=== PATIENT | female | born 1990 | race American Indian/Alaskan Native ===

== ENCOUNTER 2023-03-17 14:49 | Inpatient (IN) | payer BC, OTHER ==
[~2023-03-17 14:49] MED LIST: ORTHO TRI-CYCL1 EACH PO
[2023-03-17 15:55] LABS: HEMATOCRIT 33.5 % (35.0-50.0); MCHC 35.7 g/dl (30-36); MCV 86.9 fl (81-99); RBC 3.86 M/ul (4.3-5.7)
[2023-03-17 15:55] LABS: AMPHETAMINES, URINE NEGATIVE (NEGATIVE); BARBITURATES, URINE NEGATIVE (NEGATIVE); BENZODIAZEPINE, URINE NEGATIVE (NEGATIVE); BUPRENORPHINE, URINE NEGATIVE (NEGATIVE); CANNABINOID, URINE NEGATIVE (NEGATIVE); COCAINE, URINE NEGATIVE (NEGATIVE); ECSTASY, URINE NEGATIVE (NEGATIVE); FENTANYL, URINE NEGATIVE (NEGATIVE); METHADONE, URINE NEGATIVE (NEGATIVE); OPIATES, URINE NEGATIVE (NEGATIVE); OXYCODONE, URINE NEGATIVE (NEGATIVE); PHENCYCLIDINE, URINE NEGATIVE (NEGATIVE)
[2023-03-17 16:00] VITALS: BP 114/64
[2023-03-17 16:38] LABS: ABO AB; RH POSITIVE
[2023-03-17 16:39] LABS: ANTIBODY SCREEN NEGATIVE
--- NOTE | 2023-03-17 17:20 | PR ---
[facility] [address] [place], [place] [address] Signed Progress Notes IP Datetime Report Generated by CPN: 03/17/2023 17:20 PROGRESS NOTES: [id number] Impression: Normal Progression of Labor Procedures: Scalp Electrode; Sterile Speculum Exam Plan: Continue Present Management VITAL SIGNS: [id number] Vital Signs: Reviewed; Within Normal Limits EXAM: [id number] Dilatation: 5.0 Effacement: 75 Station: -2 Contractions: Irregular MEMBRANES: [id number] Comments: Pt w/ noted deceleration after AROM. Improved w/ maternal IV fluid bolus and repositioning. FSE placed w/out difficulty. Will monitor closely FETUS A: [id number] FHR Baseline: 135 Variability: Moderate 6-25bpm Accelerations: 15X15 Decelerations: Prolonged FHR Category: Category II Presentation: Vertex Comments on Fetus A: No evidence of metabolic acidosis FETUS B: [id number] Signing Physician: Risa Navarro DO Copies: ~ *Electronically Signed* 03/17/23 0324 RISA NAVARRO (MIREYA) DO PATIENT NAME: LINDA PACK PROGRESS NOTE DATE OF : 88 PHYSICIAN: RISA NAVARRO) DO RPT #: [id number] REPORT IS CONFIDENTIAL AND NOT TO BE RELEASED WITHOUT AUTHORIZATION
--- NOTE | 2023-03-17 18:08 | PR ---
[facility] [address] [place], [place] [address] Signed Progress Notes IP Datetime Report Generated by CPN: 03/17/2023 18:08 PROGRESS NOTES: [id number] Impression: Normal Progression of Labor; Reassuring Heart Rate Procedures: Sterile Vag Exam Plan: Continue Present Management Informed Consent Obtain: Vaginal Delivery VITAL SIGNS: [id number] Vital Signs: Reviewed; Within Normal Limits EXAM: [id number] Dilatation: 4.5 Effacement: 75 Station: -2 Contractions: q 4 min MEMBRANES: [id number] Comments: Pt seen and examined. Doing well. Feeling more uncomfortable and pelvic pressure. 4.5cm on exam. Minimal variability noted and acceleration noted w/ scalp stimulation. Continue expectant management. FETUS A: [id number] FHR Baseline: 135 Variability: Minimal - >Undetectable to <=5bpm Accelerations: 15X15 Decelerations: None FHR Category: Category II Presentation: Vertex Comments on Fetus A: No evidence of metabolic acidosis FETUS B: [id number] Signing Physician: Risa Navarro DO Copies: ~ *Electronically Signed* 03/17/23 9600 RISA NAVARRO (MIREYA) DO PATIENT NAME: LINDA PACK PROGRESS NOTE DATE OF : 88 PHYSICIAN: RISA NAVARRO (JD) DO RPT #: [id number] REPORT IS CONFIDENTIAL AND NOT TO BE RELEASED WITHOUT AUTHORIZATION
--- NOTE | 2023-03-18 00:10 | PR ---
[facility] [address] [place], [place] [address] Signed Progress Notes IP Datetime Report Generated by CPN: 03/18/2023 00:10 PROGRESS NOTES: [id number] Impression: Normal Progression of Labor; Reassuring Heart Rate Procedures: Intrauterine Pressure Catheter; Sterile Vag Exam Plan: Continue Present Management; Augmentation Informed Consent Obtain: Vaginal Delivery VITAL SIGNS: [id number] Vital Signs: Reviewed; Within Normal Limits EXAM: [id number] Dilatation: 7.0 Effacement: 90 Station: -1 Contractions: q 1-3 min MEMBRANES: [id number] Comments: Pt seen and examined. Doing well. Comfortable w/ contractions w/ epidural. IUPC not working well and RN requested replacement. Frequent maternal position changes. heart tracing reassuring. Will continue to monitor and augment per protocol FETUS A: [id number] FHR Baseline: 135 Variability: Moderate 6-25bpm Accelerations: 15X15 Decelerations: None FHR Category: Category II Presentation: Vertex Comments on Fetus A: No evidence of metabolic acidosis FETUS B: [id number] Signing Physician: Risa Navarro DO Copies: ~ *Electronically Signed* 03/18/23 0010 RISA NAVARRO (MIREYA) DO PATIENT NAME: LINDA PACK PROGRESS NOTE DATE OF : 88 PHYSICIAN: RISA NAVARRO (JD) DO RPT #: [id number] REPORT IS CONFIDENTIAL AND NOT TO BE RELEASED WITHOUT AUTHORIZATION
[2023-03-19 05:42] LABS: HEMATOCRIT 32.1 % (35.0-50.0); HEMOGLOBIN 10.9 g/dL (12.0-18.0); MCH 30.7 (27-36); MCHC 34.1 g/dl (30-36); MCV 90.2 fl (81-99); RBC 3.56 M/ul (4.3-5.7); RDW 13.2 (10.5-15.0)
--- NOTE | 2023-03-19 09:33 | PR ---
[facility] [address] [facility] [place], [place] [address] Signed PP Progress Notes Datetime Report Generated by CPN: 03/19/2023 09:33 SUBJECTIVE: [id number] Pain: Within Normal Limits Nausea/Vomiting: Denies Flatus: Yes Bowel Movement: No Vital Signs: [id number] Vital Signs: Reviewed; Within Normal Limits Notable Details: Hgb 10.9 EXAM: Met Cardiovascular: Normal Respiratory: Normal Abdomen/Uterus: Normal Lochia: Normal Vulva/Perineum: Normal Breasts: Not Done CVA Tenderness: Normal Extremities: Normal Incision: Not Applicable Progress: Normal Exam Comments: Fundus firm U-2 nontender IMPRESSION/PLAN/PROCEDURES: [id number] Impression: Normal Progression Plan: Discharge Progress Notes: Pt seen and examined. Doing well. Ambulating, voiding, and tolerating full diet. well. No fevers/chills or other concerns. Strongly desires d/c home. Unsure on pp contraception. No questions or concerns. F/U 6 wk pp at [facility] Signing Physician: Risa Navarro DO Copies: ~ *Electronically Signed* 03/19/23 0933 RISA NAVARRO (MIREYA) DO PATIENT NAME: LINDA PACK PROGRESS NOTE DATE OF : 88 PHYSICIAN: RISA NAVARRO) DO RPT #: [id number] REPORT IS CONFIDENTIAL AND NOT TO BE RELEASED WITHOUT AUTHORIZATION
--- NOTE | 2023-03-19 11:11 | NUR ---
[facility] ROUNDS. 15 MINUTES. PT NURSING BABY IN CHAIR. BOTH EXPRESSED OPTIMISM AND HOPE. PROVIDED SUPPORTIVE PRESENCE; LISTENEND EMPATHETICALLY; PROVIDED PRAYER. PT AND GENERAL DENTIST EXPRESSED GRATITUDE.
== END 2023-03-19 13:05 | disposition home or self-care (01) | DRG 807 ==
LOC: FBCO 14:49 → FBC 15:10
PROVIDERS: ADMIT Obstetrics & Gynecology; ATTEND Obstetrics & Gynecology
PROC: 10E0XZZ Delivery of Products of Conception, External Approach (ICD-10-PCS; principal; 2023-03-18)
PROC: 3E0R3BZ Introduction of Anesthetic Agent into Spinal Canal, Percutaneous Approach (ICD-10-PCS; 2023-03-18)
PROC: 00HU33Z Insertion of Infusion Device into Spinal Canal, Percutaneous Approach (ICD-10-PCS; 2023-03-18)
PROC: 10907ZC Drainage of Amniotic Fluid, Therapeutic from Products of Conception, Via Natural or Artificial Opening (ICD-10-PCS; 2023-03-18)
PROC: 10H07YZ Insertion of Other Device into Products of Conception, Via Natural or Artificial Opening (ICD-10-PCS; 2023-03-18)
PROC: 0UQMXZZ Repair Vulva, External Approach (ICD-10-PCS; 2023-03-18)
DX: O76 Abnormality in fetal heart rate and rhythm complicating labor and delivery (principal); Z37.0 Single live birth; O71.82 Other specified trauma to perineum and vulva; Z3A.38 38 weeks gestation of pregnancy; O69.3XX0 Labor and delivery complicated by short cord, not applicable or unspecified; Z87.891 Personal history of nicotine dependence
CPT/HCPCS: 01960; 36415; 80307; 85027; 86850; 86900; 86901; A9270; J2001; J2590; J7121

== ENCOUNTER 2024-08-05 16:31 | Emergency (ER) | payer BC, OTHER ==
[~2024-08-05] VITALS: Ht 160 cm; Wt 82.0 kg
[2024-08-05] MEDS ORDERED: PRENATAL VITAM1 EAC9 PO (16:46)
[2024-08-05] MEDS ORDERED: diphenhydrAMINE HCL 25 MG CAP PO ONE (18:15)
[2024-08-05 18:16] VITALS: BP 138/77
== END 2024-08-05 18:19 | disposition home or self-care (01) ==
LOC: ED 16:31
DX: O99.712 Diseases of the skin and subcutaneous tissue complicating pregnancy, second trimester (principal); T78.40XA Allergy, unspecified, initial encounter; Z3A.19 19 weeks gestation of pregnancy
CPT/HCPCS: 99283

== ENCOUNTER 2024-12-26 14:20 | Inpatient (IN) | payer BC, OTHER ==
[~2024-12-26 14:20] MED LIST changes: +PRENATAL VITAM1 EAC9 PO
[2024-12-26] MEDS ORDERED: OXYTOCIN/0.9 % SODIUM CHLORIDE 30 UNITS/500 ML BAG IV SCH (14:45)
[2024-12-26] MEDS ORDERED: LIDOCAINE HCL 1% 30 ML SDV INJ PRN (14:45)
[2024-12-26] MEDS ORDERED: TERBUTALINE SULFATE 1 MG/ML AMP SUB-Q PRN (14:45)
[2024-12-26] MEDS ORDERED: CALCIUM CARBONATE 500 MG CHEW PO PRN ×2 (14:45→20:00)
[2024-12-26] MEDS ORDERED: LACTATED RINGER'S 1,000 ML IV PRN (14:45)
[2024-12-26] MEDS ORDERED: MAGNESIUM HYDROXIDE/AL HYDROX 30 ML CUP PO PRN ×2 (14:45→20:00)
[2024-12-26] MEDS ORDERED: LACTATED RINGER'S 1,000 ML IV SCH (14:45)
[2024-12-26 14:48] LABS: MCH 30.3 PG (25.6-32.2); MCHC 34.8 g/dL (32.2-35.5); MCV 87.1 fL (79.4-94.8); RBC 4.35 M/uL (3.93-5.22)
[2024-12-26] MEDS ORDERED: MORPHINE SULFATE 1 MG/ML VIAL ONE (15:23)
[2024-12-26] MEDS ORDERED: BUPIVACAINE HCL 0.25% 10 ML SDV INJ ONE (15:23)
[2024-12-26] MEDS ORDERED: fentaNYL citrate 100 MCG/2 ML VIAL ONE ×2 (15:23→17:20)
[2024-12-26] MEDS ORDERED: LIDOCAINE HCL 2% 5 ML SDV ONE (15:23)
[2024-12-26 15:30] LABS: ABO AB
[2024-12-26] MEDS ORDERED: KETOROLAC TROMETHAMINE 30 MG/ML VIAL IV PRN (15:30)
[2024-12-26] MEDS ORDERED: PROCHLORPERAZINE EDISYLATE 10 MG/2 ML VIAL IV PRN (15:30)
[2024-12-26] MEDS ORDERED: MORPHINE SULFATE 4 MG/ML VIAL IV PRN (15:30)
[2024-12-26] MEDS ORDERED: NALOXONE HCL 0.4 MG SYR IV PRN (15:30)
[2024-12-26] MEDS ORDERED: HYDROmorphone HCL 1 MG/ML SYR IV PRN (15:30)
[2024-12-26 15:31] LABS: ANTIBODY SCREEN NEGATIVE; RH POSITIVE
[2024-12-26 15:40] VITALS: BP 132/80
--- NOTE | 2024-12-26 17:15 | PR ---
[facility] [place] [facility] [address] [place], [place] [address] Signed Progress Notes IP Datetime Report Generated by CPN: 12/26/2024 17:15 PROGRESS NOTES: [id number] Impression: Normal Progression of Labor; Reassuring Heart Rate Procedures: Sterile Vag Exam Plan: Continue Present Management; Anesthesia Consult Informed Consent Obtain: Vaginal Delivery VITAL SIGNS: [id number] Vital Signs: Reviewed; Within Normal Limits EXAM: [id number] Dilatation: 9.5 Effacement: 100 Effacement: 100 Effacement: 100 Station: 0 Station: 0 Station: 0 Contractions: q 2-3 min MEMBRANES: [id number] Comments: Pt seen and examined. Becoming more uncomfortable w/ intrathecal. Anteiror lip noted and was able to be reduced and pushing efforts started. Pt more uncomfortable and anterior lip persists but is not edmatous. Reviewed options w/ pt and she would like epidural and to labor down. Reassuring FHT. Agree with this and anesthesia notified and en route. FETUS A: [id number] FHR Baseline: 130 Variability: Moderate 6-25bpm Accelerations: None Decelerations: Variable FHR Category: Category II Presentation: Vertex Comments on Fetus A: No evidence of metabolic acidosis FETUS B: [id number] Signing Physician: Risa Navarro DO *Electronically Signed* 12/26/24 5670 RISA NAVARRO (MIREYA) DO PATIENT NAME: LINDA PACK PROGRESS NOTE DATE OF : 88 PHYSICIAN: RISA NAVARRO (JD) DO RPT #: [id number] REPORT IS CONFIDENTIAL AND NOT TO BE RELEASED WITHOUT AUTHORIZATION
[2024-12-26] MEDS ORDERED: ROPIVACAINE 0.2% 200 ML BAG ONE (17:20)
[2024-12-26] MEDS ORDERED: ePHEDrine sulfate 5 MG/ML SYRINGE IV PRN (18:00)
[2024-12-26] MEDS ORDERED: ROPIVACAINE 0.2% 200 ML BAG EPIDURAL SCH (18:00)
[2024-12-26] MEDS ORDERED: LACTATED RINGER'S 2,000 ML IV ONE (18:00)
[2024-12-26] MEDS ORDERED: LACTATED RINGER'S 500 ML IV PRN (18:00)
[2024-12-26 19:02] LABS: AMPHETAMINES, URINE NEGATIVE (NEGATIVE); BARBITURATES, URINE NEGATIVE (NEGATIVE); BENZODIAZEPINE, URINE NEGATIVE (NEGATIVE); CANNABINOID, URINE NEGATIVE (NEGATIVE); COCAINE, URINE NEGATIVE (NEGATIVE); ECSTASY, URINE NEGATIVE (NEGATIVE); FENTANYL, URINE NEGATIVE (NEGATIVE); METHADONE, URINE NEGATIVE (NEGATIVE); OPIATES, URINE NEGATIVE (NEGATIVE); OXYCODONE, URINE NEGATIVE (NEGATIVE); PHENCYCLIDINE, URINE NEGATIVE (NEGATIVE)
[2024-12-26] MEDS ORDERED: HYDROCODONE/ACETA 5/325 TAB PO PRN (20:00)
[2024-12-26] MEDS ORDERED: WITCH HAZEL/GLYCERIN 1 EA PAD TOP PRN (20:00)
[2024-12-26] MEDS ORDERED: OXYCODONE HCL 5 MG TAB PO PRN (20:00)
[2024-12-26] MEDS ORDERED: BENZOCAINE 60 ML AEROSOL TOP PRN (20:00)
[2024-12-26] MEDS ORDERED: ACETAMINOPHEN 325 MG TAB PO PRN (20:00)
[2024-12-26] MEDS ORDERED: HYDROCORTISONE ACETATE 25 MG SUPP PR PRN (20:00)
[2024-12-26] MEDS ORDERED: OXYCODONE/APAP 5/325 TAB PO PRN (20:00)
[2024-12-26] MEDS ORDERED: IBUPROFEN 600 MG TAB PO PRN (20:00)
[2024-12-26] MEDS ORDERED: OXYTOCIN/0.9 % SODIUM CHLORIDE 500 ML IV SCH (20:00)
[2024-12-26] MEDS ORDERED: MAGNESIUM HYDROXIDE 30 ML UDC PO PRN (20:00)
[2024-12-26] MEDS ORDERED: SENNOSIDES/DOCUSATE 1 EA TAB PO SCH (21:00)
[2024-12-27 05:05] LABS: MCH 31.0 PG (25.6-32.2); MCHC 34.8 g/dL (32.2-35.5); MCV 89.2 fL (79.4-94.8); RBC 4.06 M/uL (3.93-5.22)
--- NOTE | 2024-12-27 09:02 | PR ---
[facility] [address] [facility] [place], [place] [address] Signed PP Progress Notes Datetime Report Generated by CPN: 12/27/2024 09:02 SUBJECTIVE: [id number] Pain: Within Normal Limits Flatus: Yes Bowel Movement: No Vital Signs: [id number] Vital Signs: Reviewed; Within Normal Limits Cardiovascular: Normal Respiratory: Normal Abdomen/Uterus: Normal Lochia: Normal Vulva/Perineum: Normal Breasts: Not Done CVA Tenderness: Normal Extremities: Normal Progress: Normal Exam Comments: Fundus firm U-2 nontender IMPRESSION/PLAN/PROCEDURES: [id number] Impression: Normal Progression Plan: Continue Present Management Progress Notes: Pt seen and examined. Doing well. Ambulating, voiding, and tolerating full diet. Pain and lochia minimal. well. No concerns. Anticipate d/c home tomorrow. Signing Physician: Risa Navarro DO Copies: ~ *Electronically Signed* 12/27/24 09 RISA NAVARRO (MIREYA) DO PATIENT NAME: LINDA PACK PROGRESS NOTE DATE OF : 89 PHYSICIAN: RISA NAVARRO (MIREYA) DO RPT #: [id number] REPORT IS CONFIDENTIAL AND NOT TO BE RELEASED WITHOUT AUTHORIZATION
--- NOTE | 2024-12-28 08:56 | PR ---
[facility] [address] [facility] [place], [place] [address] Signed PP Progress Notes Datetime Report Generated by CPN: 12/28/2024 08:56 Pain: Within Normal Limits Nausea/Vomiting: Denies Flatus: Yes Bowel Movement: No Vital Signs: Reviewed; Within Normal Limits EXAM: Ongoing EXAM: Ongoing Cardiovascular: Normal Respiratory: Normal Abdomen/Uterus: Normal Lochia: Normal Vulva/Perineum: Not Done Breasts: Not Done CVA Tenderness: Normal Extremities: Normal Incision: Not Applicable Progress: Normal Exam Comments: Fundus firm U-2 nontender Impression: Normal Progression Plan: Discharge Progress Notes: Pt seen and examined. Doing well. Ambulating, voiding, and tolerating full diet. Pain and lochia minimal. . No concerns. Desires d/c home. All questions answered. Discussed d/c medications (motrin) and instructions in detail. Pt will f/u for pp care at [facility]. Signing Physician: Risa Navarro DO Copies: ~ *Electronically Signed* 12/28/24 0856 RISA NAVARRO (MIREYA) DO PATIENT NAME: LINDA PACKNA PROGRESS NOTE DATE OF : 88 PHYSICIAN: RISA NAVARRO (MIREYA) DO RPT #: [id number] REPORT IS CONFIDENTIAL AND NOT TO BE RELEASED WITHOUT AUTHORIZATION
== END 2024-12-28 09:55 | disposition home or self-care (01) | DRG 807 ==
LOC: FBCO 14:20 → FBC 14:24 → FBCO 14:30 → FBC 14:30
PROVIDERS: Nurse Practitioner Obstetrics & Gynecology; ADMIT Obstetrics & Gynecology; ATTEND Obstetrics & Gynecology
PROC: 10E0XZZ Delivery of Products of Conception, External Approach (ICD-10-PCS; principal; 2024-12-26)
PROC: 10907ZC Drainage of Amniotic Fluid, Therapeutic from Products of Conception, Via Natural or Artificial Opening (ICD-10-PCS; 2024-12-26)
PROC: 0UQMXZZ Repair Vulva, External Approach (ICD-10-PCS; 2024-12-26)
PROC: 4A1HXCZ Monitoring of Products of Conception, Cardiac Rate, External Approach (ICD-10-PCS; 2024-12-26)
PROC: 00HU33Z Insertion of Infusion Device into Spinal Canal, Percutaneous Approach (ICD-10-PCS; 2024-12-26)
PROC: 3E0R3BZ Introduction of Anesthetic Agent into Spinal Canal, Percutaneous Approach (ICD-10-PCS; 2024-12-26)
DX: O69.81X0 Labor and delivery complicated by cord around neck, without compression, not applicable or unspecified (principal); Z37.0 Single live birth; Z3A.39 39 weeks gestation of pregnancy; O71.82 Other specified trauma to perineum and vulva; Z88.1 Allergy status to other antibiotic agents; Z87.891 Personal history of nicotine dependence; O99.284 Endocrine, nutritional and metabolic diseases complicating childbirth; E55.9 Vitamin D deficiency, unspecified
CPT/HCPCS: 01960; 36415; 80307; 85027; 85060; 86850; 86900; 86901; A9270; J2003; J2274; J2405; J2795; J3010; J7121

== ENCOUNTER 2025-01-23 10:16 | Emergency (ER) | payer BC, OTHER ==
[~2025-01-23] VITALS: Ht 152.4 cm; Wt 85.2 kg
[2025-01-23 11:44] LABS: BASOPHILS 0.4 % (0.1-1.2); EOSINOPHILS 1.9 % (0.7-5.8); LYMPHOCYTES 25.3 % (19.3-51.7); MCH 30.1 PG (25.6-32.2); MCHC 33.8 g/dL (32.2-35.5); MCV 88.8 fL (79.4-94.8); MONOCYTES 7.7 % (4.7-12.5); NEUTROPHILS 64.1 % (34.0-71.1); RBC 4.39 M/uL (3.93-5.22)
[2025-01-23 12:00] LABS: ALT (SGPT) 65.0 U/L (14-59); AST (SGOT) 25.0 U/L (15-37); GLOMERULAR FILTRATION RATE,EST 83.0 mL/min (>60); PROTEIN, TOTAL 6.8 g/dL (6.4-8.2); UREA NITROGEN 19.0 mg/dL (7-18)
[2025-01-23 12:20] LABS: BLOOD/HGB, URINE NEGATIVE (Negative); KETONE, URINE NEGATIVE (Negative); LEUK ESTERASE, URINE NEGATIVE (negative); NITRITE, URINE NEGATIVE (negative)
[2025-01-23 13:15] VITALS: BP 115/95
== END 2025-01-23 13:17 | disposition home or self-care (01) ==
LOC: ED 10:16
PROVIDERS: Emergency Medicine
DX: R22.32 Localized swelling, mass and lump, left upper limb (principal); Z87.891 Personal history of nicotine dependence; Z88.8 Allergy status to other drugs, medicaments and biological substances
CPT/HCPCS: 36415; 80053; 81003; 85025; 99283